=== PATIENT | male | born 1955 | race Caucasian/White ===

== ENCOUNTER 2018-06-11 09:12 | Outpatient (REF) | payer OTHER, SELFPAY ==
[2018-06-13 15:45] LABS: PSA, Diagnostic 5.9 ng/ml (0-4.5)
== END 2018-06-11 09:32 ==
LOC: NCHCN 09:12
PROVIDERS: Urology; Visit Provider Nurse Practitioner Family
DX: R97.20 Elevated prostate specific antigen [PSA] (principal)
CPT/HCPCS: 84153

== ENCOUNTER 2018-06-22 11:00 | Outpatient (REF) | payer OTHER, SELFPAY ==
--- NOTE | 2018-06-22 11:00 | SKI_PTH ---
PATIENT: Selvin Mathis LOC: [facility] U#:[id number] AGE/SX: 62/M ROOM: RE06/22/[address]: Amarilys Knight : 1955 BED: DIS: 06/22/2018 SPEC #: [id number] RECD: 06/25/18 12:32 STATUS: ERYN [place] #: [id number] KRYSTINA: 06/22/18 11:[address]: Amarilys Rubi DEPT: Surgical Specimen RECD BY: Nancy Jackson ENTERED: 06/25/18 12:32 SP TYPE: SERGIO BAINS DR: Santiago Cortes Tissues: 1 - SKIN BIOPSY(SHAVE/PUNCH) Procedures: SKIN LEVEL 4 Comments: [id number]
== END 2018-06-22 11:20 ==
LOC: NCHCN 11:00
PROVIDERS: Visit Provider Nurse Practitioner Family
DX: L57.0 Actinic keratosis (principal)
CPT/HCPCS: 88305

== ENCOUNTER 2018-06-28 14:06 | Outpatient (REF) | payer OTHER, SELFPAY ==
[2018-06-28 20:58] LABS: HCT 45.4 % (40.0-50.0); HGB 14.7 g/dL (13.5-17.5); Mean Corp. HGB Concentration 32.4 g/dL (32.0-36.0); Mean Corpuscular Hemoglobin 30.4 pg (27.0-33.0); Platelet Count 250 x1000/uL (130-400); RBC 4.83 m/cumm (4.50-6.00); RBC Distribution Width 13.6 % (11.8-14.1); White Blood Cell Count 6.57 k/cumm (4.4-10.8)
[2018-06-28 21:20] LABS: ALT 30 U/L (12-78); AST 19 U/L (15-37); Albumin 4.2 g/dL (3.4-5.0); Alkaline Phosphatase 78 U/L (46-116); Anion Gap 9.5 mmol/L (3-11); BUN 17 mg/dL (7-18); Bilirubin, Total 0.5 mg/dL (0.2-1.0); C-Reactive Protein 0.25 mg/dL (0.0-0.3); CO2 27.5 mmol/L (21.0-32.0); CREATININE 0.89 mg/dL (0.70-1.30); Calcium 8.8 mg/dL (8.5-10.1); Chloride 102 mmol/L (98-107); Glucose 98 mg/dL (70-100); Potassium 4.4 mmol/L (3.5-5.1); Sodium 139 mmol/L (136-145); Total Protein 6.9 g/dL (6.4-8.2)
[2018-06-28 22:08] LABS: ESR 6 MM/HR (1-20)
== END 2018-06-28 14:26 ==
LOC: NCHCN 14:06
PROVIDERS: Visit Provider Nurse Practitioner Family
DX: M60.9 Myositis, unspecified (principal)
CPT/HCPCS: 80053; 85027; 85652; 86140

== ENCOUNTER 2019-03-28 14:16 | Outpatient (REF) | payer OTHER, SELFPAY ==
[2019-03-28 22:35] LABS: ALT 29 U/L (16-63); AST 22 U/L (15-37); Albumin 4.3 g/dL (3.4-5.0); Alkaline Phosphatase 88 U/L (46-116); BUN 15 mg/dL (7-18); Bilirubin, Total 0.8 mg/dL (0.2-1.0); C-Reactive Protein 0.21 mg/dL (0.0-0.3); CREATININE 0.87 mg/dL (0.70-1.30); Calcium 8.7 mg/dL (8.5-10.1); Chloride 103 mmol/L (98-107); Glucose 87 mg/dL (74-106); HCT 43.7 % (40.0-50.0); HGB 14.2 g/dL (13.5-17.5); Mean Corp. HGB Concentration 32.5 g/dL (32.0-36.0); Mean Corpuscular Volume 95.4 fL (80-95); Mean Platelet Volume 10.9 fL (8.0-11.0); Platelet Count 248 x1000/uL (130-400); Potassium 4.3 mmol/L (3.5-5.1); RBC 4.58 m/cumm (4.50-6.00); Sodium 142 mmol/L (136-145); Total Protein 6.8 g/dL (6.4-8.2); White Blood Cell Count 6.77 k/cumm (4.4-10.8)
[2019-03-28 22:57] LABS: ESR 8 mm/hr (1-20)
[2019-03-28 23:18] LABS: Calculated LDL 68 mg/dL (<100); Cholesterol 157 mg/dL (<200); Folate 13.1 ng/mL (8.6-20.0); HDL Cholesterol 80 mg/dL (40-60); Triglyceride 46 mg/dL (<150); Vitamin B12 579 pg/mL (193-986)
[2019-04-01 08:43] LABS: Homocysteine 14.8 umol/L (5.0-13.9)
[2019-04-01 11:03] LABS: Lyme Ab w Rflx to Lyme Confirm Negative (Negative)
[2019-04-01 17:18] LABS: Anaplasma phagocytophilum Negative (Negative); B. miyamotoi PCR Negative (Negative); Babesia divergens/MO-1 Negative (Negative); Babesia duncani Negative (Negative); Babesia microti Negative (Negative); Ehrlichia chaffeensis Negative (Negative); Ehrlichia ewingii/canis Negative (Negative); Ehrlichia muris eauclairensis Negative (Negative)
== END 2019-03-28 14:36 ==
LOC: NCHCN 14:16
PROVIDERS: Visit Provider Nurse Practitioner Family
DX: D75.89 Other specified diseases of blood and blood-forming organs (principal); M19.90 Unspecified osteoarthritis, unspecified site; G62.9 Polyneuropathy, unspecified; H34.9 Unspecified retinal vascular occlusion
CPT/HCPCS: 80053; 80061; 83090; 85027; 85652; 87798; 81291; 82607; 82746; 86140; 86618

== ENCOUNTER 2019-11-06 16:49 | Outpatient (REF) | payer OTHER, SELFPAY ==
[2019-11-06 20:23] LABS: HCT 42.5 % (40.0-50.0); HGB 13.7 g/dL (13.5-17.5); MCH 30.6 pg (27.0-33.0); MCHC 32.2 % (32.0-36.0); MCV 95.1 fL (80-95); Platelet Count 251 10^3/uL (130-400); RBC 4.47 10^6/uL (4.36-5.78); RDW 12.5 % (11.8-14.1); RDW-SD 43.4 fL; WBC 6.14 10^3/uL (4.4-10.8)
[2019-11-06 20:29] LABS: Anion Gap 5.2 mmol/L (3-11); BUN 21 mg/dL (7-18); CO2 28.8 mmol/L (21.0-32.0); CREATININE 0.91 mg/dL (0.70-1.30); Calcium 8.7 mg/dL (8.5-10.1); Chloride 103 mmol/L (98-107); Glucose 96 mg/dL (74-106); Potassium 4.2 mmol/L (3.5-5.1); Sodium 137 mmol/L (136-145)
[2019-11-06 21:01] LABS: ESR 9 mm/hr (1-20)
[2019-11-07 18:39] LABS: PSA, Screening 7.3 ng/mL (0.0-4.5)
== END 2019-11-06 17:09 ==
LOC: NCHCN 16:49
PROVIDERS: Visit Provider Nurse Practitioner Community Health
DX: R07.89 Other chest pain (principal); Z12.5 Encounter for screening for malignant neoplasm of prostate
CPT/HCPCS: 80048; 84153; 85027; 85652

== ENCOUNTER 2019-12-10 11:50 | Outpatient (REF) | payer OTHER, SELFPAY ==
[2019-12-10 22:46] LABS: AST 21 U/L (15-37); Calculated LDL 66 mg/dL (<100); Cholesterol 162 mg/dL (<200); HDL Cholesterol 86 mg/dL (40-60); Triglyceride 54 mg/dL (<150)
== END 2019-12-10 12:10 ==
LOC: LBN 11:50
PROVIDERS: Visit Provider Internal Medicine Cardiovascular Disease
DX: E78.00 Pure hypercholesterolemia, unspecified (principal)
CPT/HCPCS: 80061; 84450

== ENCOUNTER 2020-01-16 14:10 | Outpatient (REF) | payer OTHER, SELFPAY ==
[2020-01-19 14:49] LABS: SARS-CoV-2 RNA Not Detected (NotDetected)
[2020-01-19 15:08] LABS: SARS-CoV-2 RNA Source Nasal/Nares
== END 2020-01-16 14:30 ==
LOC: NCHCN 14:10
PROVIDERS: Visit Provider Nurse Practitioner Family
DX: Z20.828 Contact with and (suspected) exposure to other viral communicable diseases (principal)
CPT/HCPCS: U0003

== ENCOUNTER 2020-09-18 10:13 | Outpatient (REF) | payer OTHER, SELFPAY ==
[2020-09-19 14:16] LABS: COVID-19 RT-PCR UVMMC Result Negative (Negative)
== END 2020-09-18 10:14 | disposition home or self-care (01) ==
LOC: NCHCN 10:13
PROVIDERS: Visit Provider Nurse Practitioner Family
DX: J06.9 Acute upper respiratory infection, unspecified (principal); Z20.822 Contact with and (suspected) exposure to COVID-19
CPT/HCPCS: U0003

== ENCOUNTER 2020-10-07 22:21 | Outpatient (REF) | payer OTHER, SELFPAY ==
[2020-10-07 22:38] LABS: Abs Immature Grans 0.01 10^3/uL (0.0-0.06); Absolute Basophil Count 0.03 10^3/uL (0.0-0.2); Absolute Eosinophil Count 0.22 10^3/uL (0.0-0.7); Absolute Lymphocyte Count 2.13 10^3/uL (1.2-3.4); Absolute Monocyte Count 0.65 10^3/uL (0.1-0.8); Basophils % 0.5; Eosinophils % 3.4; HCT 40.3 % (40.0-50.0); HGB 12.9 g/dL (13.5-17.5); Immature Grans % 0.2; Lymphocytes % 32.6; MCH 31.1 pg (27.0-33.0); MCV 97.1 fL (80-95); MPV 11.4 fL (8.0-11.0); Monocytes % 9.9; Neutrophils % 53.4; Nucleated RBC 0 %; Platelet Count 225 10^3/uL (130-400); RBC 4.15 10^6/uL (4.36-5.78); RDW 12.7 % (11.8-14.1); RDW-SD 45.6 fL; WBC 6.54 10^3/uL (4.4-10.8)
[2020-10-07 22:40] LABS: ESR < 1 mm/hr (0-20)
[2020-10-07 22:56] LABS: ALT 29 U/L (16-63); AST 17 U/L (15-37); Albumin 3.8 g/dL (3.4-5.0); Alkaline Phosphatase 90 U/L (46-116); Anion Gap 5.8 mmol/L (3-11); BUN 21 mg/dL (7-18); Bilirubin, Total 0.6 mg/dL (0.2-1.0); C-Reactive Protein 0.06 mg/dL (0.0-0.3); CO2 28.2 mmol/L (21.0-32.0); CREATININE 0.9 mg/dL (0.70-1.30); Calcium 8.7 mg/dL (8.5-10.1); Chloride 106 mmol/L (98-107); Glucose 139 mg/dL (74-106); Potassium 4.4 mmol/L (3.5-5.1); Sodium 140 mmol/L (136-145); TSH 1.19 uIU/mL (0.36-3.74); Total Protein 6.1 g/dL (6.4-8.2)
[2020-10-09 10:49] LABS: Lyme Ab w Rflx to Lyme Confirm Negative (Negative)
[2020-10-13 13:01] LABS: Anaplasma phagocytophilum Negative (Negative); B. miyamotoi PCR Negative (Negative); Babesia divergens/MO-1 Negative (Negative); Babesia duncani Negative (Negative); Babesia microti Negative (Negative); Ehrlichia chaffeensis Negative (Negative); Ehrlichia ewingii/canis Negative (Negative); Ehrlichia muris eauclairensis Negative (Negative)
== END 2020-10-07 22:22 | disposition home or self-care (01) ==
LOC: NCHCN 22:21
PROVIDERS: Visit Provider Nurse Practitioner Family
DX: R53.83 Other fatigue (principal); R50.9 Fever, unspecified
CPT/HCPCS: 80053; 85652; 87798; 84443; 85025; 86140; 86618

== ENCOUNTER 2022-01-17 15:18 | Outpatient (REF) | payer OTHER, SELFPAY ==
[2022-01-19 11:11] LABS: PSA, Diagnostic 18.7 ng/mL (<=4.5)
== END 2022-01-17 15:19 | disposition home or self-care (01) ==
LOC: LBN 15:18
PROVIDERS: Visit Provider Urology
DX: N40.1 Benign prostatic hyperplasia with lower urinary tract symptoms (principal); N13.8 Other obstructive and reflux uropathy
CPT/HCPCS: 84153

== ENCOUNTER 2022-02-23 19:10 | Outpatient (REF) | payer OTHER, SELFPAY | END 2022-02-23 19:11 | disposition home or self-care (01) | LOC: NCHCN 19:10 | PROVIDERS: Visit Provider Family Medicine | DX: R30.0 Dysuria (principal); R39.89 Other symptoms and signs involving the genitourinary system | CPT/HCPCS: 87077; 87086; 87186 ==

== ENCOUNTER 2022-03-17 12:35 | Outpatient (REF) | payer MEDICARE, SELFPAY ==
[2022-03-17 14:50] LABS: HCT 44.7 % (40.0-50.0); HGB 14.6 g/dL (13.5-17.5); MCH 30.4 pg (27.0-33.0); MCHC 32.7 % (32.0-36.0); MCV 93 fL (80-95); MPV 11.1 fL (8.0-11.0); Platelet Count 228 10^3/uL (130-400); RBC 4.81 10^6/uL (4.36-5.78); RDW 13.1 % (11.8-14.1); RDW-SD 44.7 fL; WBC 6.85 10^3/uL (4.4-10.8)
[2022-03-17 15:07] LABS: Anion Gap 6.7 mmol/L (3-11); BUN 28 mg/dL (7-18); CO2 27.3 mmol/L (21.0-32.0); Calcium 9.3 mg/dL (8.5-10.1); Calculated LDL 53 mg/dL (<100); Chloride 103 mmol/L (98-107); Cholesterol 156 mg/dL (<200); Estimated GFR 81.98 (mL/min/1.73m2); Glucose 102 mg/dL (74-106); HDL Cholesterol 87 mg/dL (40-60); Potassium 4.7 mmol/L (3.5-5.1); Sodium 137 mmol/L (136-145); Triglyceride 84 mg/dL (<150)
== END 2022-03-17 12:36 | disposition home or self-care (01) ==
LOC: NCHCN 12:35
PROVIDERS: Visit Provider Nurse Practitioner Family
DX: C61 Malignant neoplasm of prostate (principal); C67.9 Malignant neoplasm of bladder, unspecified; Z01.818 Encounter for other preprocedural examination; R53.83 Other fatigue; E78.00 Pure hypercholesterolemia, unspecified
CPT/HCPCS: 80048; 80061; 85027

== ENCOUNTER 2022-03-17 15:29 | Outpatient (REF) | payer MEDICARE, SELFPAY | END 2022-03-17 15:30 | disposition home or self-care (01) | LOC: LBN 15:29 | PROVIDERS: Visit Provider Urology | DX: R30.0 Dysuria (principal) | CPT/HCPCS: 87077; 87086; 87186 ==

== ENCOUNTER 2022-04-18 16:48 | Outpatient (REF) | payer MEDICARE, SELFPAY | END 2022-04-18 16:49 | disposition home or self-care (01) | LOC: NCHCN 16:48 | PROVIDERS: Visit Provider Nurse Practitioner Family | DX: R39.89 Other symptoms and signs involving the genitourinary system (principal) | CPT/HCPCS: 87086 ==

== ENCOUNTER 2022-05-30 12:53 | Outpatient (REF) | payer MEDICARE, SELFPAY | END 2022-05-30 12:54 | disposition home or self-care (01) | LOC: LBN 12:53 | PROVIDERS: Visit Provider Urology | DX: R30.0 Dysuria (principal) | CPT/HCPCS: 87086 ==

== ENCOUNTER 2022-06-16 18:16 | Outpatient (REF) | payer MEDICARE, SELFPAY ==
[2022-06-16 22:32] LABS: BUN 20 mg/dL (7-18); CREATININE 1.1 mg/dL (0.70-1.30); Estimated GFR 73.12 (mL/min/1.73m2)
== END 2022-06-16 18:17 | disposition home or self-care (01) ==
LOC: NCHCN 18:16
PROVIDERS: Visit Provider Nurse Practitioner Family
DX: C67.9 Malignant neoplasm of bladder, unspecified (principal); Z01.818 Encounter for other preprocedural examination; Z01.812 Encounter for preprocedural laboratory examination
CPT/HCPCS: 84520; 82565

== ENCOUNTER 2025-01-27 13:41 | Outpatient (REF) | payer MEDICARE, SELFPAY ==
[2025-01-27 22:21] LABS: Cholesterol 149 mg/dL (<200); HDL Cholesterol 75 mg/dL (>40)
== END 2025-01-27 13:42 | disposition home or self-care (01) ==
LOC: NCHCN 13:41
PROVIDERS: Visit Provider Family Medicine
DX: E78.5 Hyperlipidemia, unspecified (principal)
CPT/HCPCS: 80061